=== PATIENT | female | born 1985 | race Caucasian/White ===

== ENCOUNTER 2018-07-17 08:36 | Emergency (ER) | payer OTHER, SELFPAY ==
[2018-07-17 08:39] VITALS: BP 99/60; PULSE 57; RESP 14; TEMP 36.5; O2SAT 99; BMI 21.2
--- NOTE | 2018-07-17 09:16 | ED_ITS ---
HPI - Wound/Laceration General Chief Complaint: Wound/Laceration Stated Complaint: Sliced knuckle Time Seen by Provider: 07/17/18 08:37 Source: patient and family Mode of arrival: ambulatory Limitations: no limitations History of Present Illness HPI narrative: 32-year-old female nonsmoker with benign medical history presents with her and a chief complaint of a laceration over the knuckle of her left index finger. She denies any numbness, tingling or weakness. Her tetanus will need to be updated. She was using sharp, but dirty blade to clean the label off of a glass bottle when it slipped. She denies other injury and is otherwise well and free of complaints Onset (ago): minute(s) Extremity Location: Left: hand Place: home Patient tetanus UTD: No Context: accidental Associated symptoms: pain Treatments prior to arrival: bandage Related Data Previous Rx's Medication Instructions Recorded cephalexin [Keflex] 500 mg PO QID 7 Days #28 cap 07/17/18 Allergies Allergy/AdvReac Type Severity Reaction Status Date / Time No Known Drug Allergies Allergy Verified 07/17/18 08:39 Review of Systems Constitutional Denies chills, Denies fever(s), Denies lethargy and Denies weakness Eyes Denies change in vision, Denies eye discharge, Denies irritation and Denies loss of vision ENT Ears, Nose, Mouth, and Throat: Denies change in voice, Denies neck pain and Denies sore throat Cardiovascular Denies chest pain, Denies irregular heart rhythm, Denies lightheadedness, Denies palpitations, Denies dyspnea, Denies dyspnea on exertion and Denies orthopnea Respiratory Denies cough, Denies dyspnea, Denies dyspnea on exertion and Denies wheezing Gastrointestinal Gastrointestinal: Denies abdominal pain, Denies change in bowel habits, Denies diarrhea, Denies nausea and Denies vomiting Genitourinary Denies hematuria, Denies flank pain, Denies urinary incontinence and Denies urinary urgency Musculoskeletal Denies neck pain Integumentary/Breasts Denies pruritus, Denies erythema, Denies rash and Reports wounds Neurologic Denies confusion, Denies loss of vision and Denies weakness Psychiatric Denies anxiety, Denies confusion, Denies depression, Denies homicidal ideation and Denies suicidal ideation Endocrine Denies palpitations Hematologic/Lymphatic Denies easy bruising Allergic/Immunologic Denies wheezing PFSH Social History Smoking Status: Never smoker Social History Smoking Status: Never smoker Exam Narrative Exam Narrative: GEN: AOx3 and in mild distress EYES: Pupils are equal, round, and reactive to light and accommodation. Extraoccular muscles are intact bilaterally. There is no subconjunctival hemorrhage or exudate. CHEST: Lungs are clear to auscultation bilaterally and free of wheezes, rales, or rhonchi. Heart rate is regular rhythm, there are no murmurs, clicks, rubs, or gallops. There is no chest wall tenderness. ABD: Abdomen is soft and nontender. There is no guarding or rebound. Bowel sounds are normal in all 4 quadrants. There is no mass or organomegaly. EXT: 1 cm laceration over the dorsal side of MCP of L index finger with minimal active bleeding. Partial tendon laceration noted while viewed in a bloodless field, tendon glide is noted but laceration obvious. Full painless ROM of all extremities with no loss of sensation or strength. SKIN: Warm, pink, and dry. No erythema or rash Initial Vital Signs Initial Vital Signs: Vital Signs Temperature 97.7 F 07/17/18 08:39 Pulse Rate 57 L 07/17/18 08:39 Respiratory Rate 14 07/17/18 08:39 Blood Pressure 99/60 07/17/18 08:39 Pulse Oximetry 99 07/17/18 08:39 Procedures Laceration Repair Laceration 1: Site: hand Side (If applicable): left Size (cm): 1 Description: linear Depth: simple, single layer and involves tendon (Full Jefferson noted in bloodless field, however laceration of tendon is noted) Local Anesthetic: lidocaine 1% and with bicarb Pre-repair: wound explored and irrigated extensively Skin layer closed with: nylon Size (cm): 5-0 Number of sutures: 5 Technique: simple, interrupted Course Orders Ordered: Discontinued Medications Diphtheria/Tetanus/Acell Pertussis (Adacel) 0.5 ml IM .ONCE ONE Stop: 07/17/18 09:19 Vital Signs - 8 hr 07/17/18 08:39 Temperature 97.7 F Pulse Rate 57 L Respiratory Rate 14 Blood Pressure 99/60 Pulse Oximetry 99 Discharge Plan Departure Patient Disposition: Home Clinical Impression: Extensor tendon laceration of finger with open wound Qualifiers: Encounter type: initial encounter Qualified Code(s): S56.429A - Laceration of extensor muscle, fascia and tendon of unspecified finger at forearm level, initial encounter Instructions: DI for Laceration Repair, DI for Tendon Repair Activity Restrictions/Additional Instructions: *You have been diagnosed with [ left index finger extensor tendon laceration ] *What to do: *Take medications as directed: your antibiotic has been electronically transmitted to [facility] at your request *Follow up [facility], call for an appointment. Let them know you were seen in the Emergency Department and that we ask that you be seen in follow up *Return to ER if you should have any new, worsening or concerning symptoms Prescriptions: New cephalexin [Keflex] 500 mg capsule 500 mg PO QID 7 Days Qty: 28 RF: 0
[2018-07-17] MEDS: TET,DIPH,PERTUSS(ACELL),VAC/PF 0.5 ML SYRINGE IM (09:19)
[2018-07-17 09:25] VITALS: BP 92/56; PULSE 41; RESP 16; O2SAT 98
== END 2018-07-17 09:26 | disposition home or self-care (01) ==
LOC: ED 09:25
PROVIDERS: Emergency Provider Emergency Medicine; PCP Family Medicine
DX: S56.422A Laceration of extensor muscle, fascia and tendon of left index finger at forearm level, initial encounter (principal); W26.8XXA Contact with other sharp object(s), not elsewhere classified, initial encounter; Z23 Encounter for immunization
CPT/HCPCS: 12001; 90471; 99282; 99283; 90715

== ENCOUNTER 2021-07-11 17:08 | Emergency (ER) | payer OTHER, SELFPAY ==
[2021-07-11 17:12] VITALS: BP 111/56; PULSE 52; RESP 16; TEMP 36.9; O2SAT 98; BMI 21.2
--- NOTE | 2021-07-11 17:22 | PC.NURSE ---
Patient noticed lump today on throat (right side), more visible with swallowing, denies pain with swallowing or palpation.
--- NOTE | 2021-07-11 17:28 | DI.CT.S_ITS ---
PROCEDURE: CT SOFT TISSUE NECK W CON INDICATIONS: Right neck mass TECHNIQUE: After the administration of intravenous contrast, 3.0 mm axial sections acquired from the sella to the aortic arch. Additional oblique axial 3.0 mm sections acquired through the pharynx. 3 mm thick coronal and sagittal reformats were generated. For radiation dose reduction, the following was used: automated exposure control. COMPARISON: None. FINDINGS: Image quality: Excellent. Lymph nodes: No enlarged lymph nodes seen throughout the neck. Vessels: Visualized vasculature appears patent. Neck spaces: The oropharynx, nasopharynx, and pharynx demonstrate no mucosal lesions. The vocal cords, false vocal cords, pyriform sinuses, epiglottis, vallecula, and tongue base all appear normal. Extramucosal spaces appear unremarkable. Glands: 2.5 x 2.1 cm lesion is seen in the right thyroid lobe, which corresponds to the palpable abnormality as indicated by a skin marker. The parotid and submandibular glands appear normal. Miscellaneous: Visualized brain and orbits appear normal. Lung apices appear clear. Superficial soft tissues appear normal. Bones: No suspicious bony lesions. Visualized sinuses and mastoids appear unremarkable. IMPRESSION: Nonspecific 2.5 x 2.1 cm lesion in the right thyroid lobe corresponds to the palpable abnormality. Findings may represent a cystic lesion with proteinaceous or hemorrhagic contents versus a solid thyroid nodule. Recommend thyroid ultrasound for further characterization. Dictated by: Babatunde Worley M.D. on 07/11/2021 at 18:42 Approved by: Babatunde Worley M.D. on 07/11/2021 at 18:47
--- NOTE | 2021-07-11 17:28 | ED.SKABFB ---
HPI - Skin/Abscess/Foreign Bdy <Jered Bedoya DO - Last Filed: 07/12/21 07:10> General Chief complaint: Skin/Abscess/Foreign Body Stated complaint: Lump on throat Time Seen by Provider: 07/11/21 17:21 Source: patient Mode of arrival: Ambulatory History of Present Illness HPI narrative: 35-year-old female who is here for evaluation of a lump on the right side of her throat. She states that she noticed it today when she was getting out of the shower. Does move when she swallows. No problems swallowing. No problems breathing. No trauma. Does not painful. Has never had this in the past. No dental issues. Related Data Allergies Allergy/AdvReac Type Severity Reaction Status Date / Time No Known Drug Allergies Allergy Verified 07/17/18 08:39 Review of Systems <DO Obie Chun Last Filed: 07/12/21 07:10> Constitutional Constitutional: Denies fever(s) ENT Ears, Nose, Mouth, and Throat: Reports system reviewed and no additional complaints, except as documented and Reports as per HPI Respiratory Respiratory: Reports as per HPI and Reports system reviewed and no additional complaints, except as documented Integumentary/Breasts Skin/Breast: Reports system reviewed and no additional complaints, except as documented Hematologic/Lymphatic On Anticoagulants: No Patient History <DO Obie Chun Last Filed: 07/12/21 07:10> Medical History Depression Social History Smoking Status: Never smoker Smoking Status: Never smoker alcohol intake frequency: a few times a week Substance Use Type: does not use Exam <DO Obie Chun Last Filed: 07/12/21 07:10> Initial Vital Signs Initial Vital Signs: Vital Signs Temperature 98.4 F 07/11/21 17:12 Pulse Rate 52 L 07/11/21 17:12 Respiratory Rate 16 07/11/21 17:12 Blood Pressure 111/56 L 07/11/21 17:12 Pulse Oximetry 98 07/11/21 17:12 Const General: cooperative, comfortable and well developed HENLA Head: normal to inspection, normocephalic and atraumatic Ears: TM's normal bilaterally Mouth: oral mucosae normal and moist mucous membranes Teeth and gingiva: dentition normal Throat: uvula midline, no postnasal drainage and no uvular edema Neck Other: Patient with a well defined soft freely movable right sided mass that is approximately 3 cm x 3 cm. It does elevate with swallowing. No left-sided discomfort. No other lymphadenopathy noted. Resp Effort & Inspection: normal respiratory effort Auscultation: clear to auscultation bilaterally Skin General: no rashes or lesions noted Neuro General: patient alert, patient awake, patient oriented x3 and moves all extremities Extrem General: normal to inspection and capillary refill normal Psych Appearance: grossly normal and well kempt <Leslie Espinoza DO - Last Filed: 07/11/21 22:08> Initial Vital Signs Initial Vital Signs: Vital Signs Temperature 98.4 F 07/11/21 17:12 Pulse Rate 52 L 07/11/21 17:12 Respiratory Rate 16 07/11/21 17:12 Blood Pressure 111/56 L 07/11/21 17:12 Pulse Oximetry 98 07/11/21 17:12 Course <Jered Bedoya DO - Last Filed: 07/12/21 07:10> Orders Ordered: ED Orders 07/11/21 17:28 CT soft tissue neck w con Stat 07/11/21 17:34 Basic Metabolic Panel Stat Complete Blood Count AUTO DIFF Stat Test Serum,Qual Stat Thyroid Stimulating Hormone Stat 07/11/21 19:02 US thyroid Stat Vital Signs Vital signs: Vital Signs - 8 hr 07/11/21 17:12 07/11/21 20:22 Temperature 98.4 F Pulse Rate 52 L 43 L Respiratory Rate 16 16 Blood Pressure 111/56 L 92/42 L Pulse Oximetry 98 97 <Leslie Espinoza DO - Last Filed: 07/11/21 22:08> Orders Ordered: ED Orders 07/11/21 17:28 CT soft tissue neck w con Stat 07/11/21 17:34 Basic Metabolic Panel Stat Complete Blood Count AUTO DIFF Stat Test Serum,Qual Stat Thyroid Stimulating Hormone Stat 07/11/21 19:02 US thyroid Stat Vital Signs Vital signs: Vital Signs - 8 hr 07/11/21 17:12 07/11/21 20:22 Temperature 98.4 F Pulse Rate 52 L 43 L Respiratory Rate 16 16 Blood Pressure 111/56 L 92/42 L Pulse Oximetry 98 97 MDM - Skin/Abscess/Foreign Bdy <Jered BedoyaDO - Last Filed: 07/12/21 07:10> Lab Data Result diagrams: 07/11/21 17:34 07/11/21 17:34 Labs: Lab Results 07/11/21 07/11/21 07/11/21 Range/Units 17:34 17:34 17:34 WBC 6.4 (4.5-11.0) X10^3/uL RBC 4.07 (4.0-5.2) X10^6/uL Hgb 12.3 (12.0-16.0) g/dL Hct 35.5 L (36-46) % MCV 87.2 (80-100) fL MCH 30.2 (26-34) PG MCHC 34.6 (30-36) % RDW 13.4 (11.6-14.8) % Plt Count 236 (150-400) X10^3/uL Neut % (Auto) 67.4 (50-75) % Lymph % (Auto) 25.0 (25-40) % Ellsworth % (Auto) 6.2 (3-14) % Eos % (Auto) 0.7 L (2-4) % Baso % (Auto) 0.7 (0-2) % Neut # (Auto) 4300 (6118-4742) /uL Lymph # (Auto) 1600 (4528-9389) /uL Ell[place] # (Auto) 400 (0-900) /uL Eos # (Auto) 0 (0-450) /uL Baso # (Auto) 0 (0-100) /uL Sodium 139 (137-145) mmol/L Potassium 4.3 (3.4-5.1) mmol/L Chloride 105 (98-107) mmol/L Carbon Dioxide 29 (22-32) mmol/L BUN 25 H (7-17) mg/dL Creatinine 0.73 (0.52-1.04) mg/dL Estimated GFR > 60 (>60) mL/min BUN/Creatinine Ratio 34.2 H (6-22) Glucose 98 (70-100) mg/dL Calcium 9.6 (8.4-10.2) mg/dL TSH 1.93 (0.47-4.68) uIU/mL Serum , Qual (Negative) 07/11/21 Range/Units 17:34 WBC (4.5-11.0) X10^3/uL RBC (4.0-5.2) X10^6/uL Hgb (12.0-16.0) g/dL Hct (36-46) % MCV (80-100) fL MCH (26-34) PG MCHC (30-36) % RDW (11.6-14.8) % Plt Count (150-400) X10^3/uL Neut % (Auto) (50-75) % Lymph % (Auto) (25-40) % Ellsworth % (Auto) (3-14) % Eos % (Auto) (2-4) % Baso % (Auto) (0-2) % Neut # (Auto) (0250-5392) /uL Lymph # (Auto) (6102-3371) /uL Ellsworth # (Auto) (0-900) /uL Eos # (Auto) (0-450) /uL Baso # (Auto) (0-100) /uL Sodium (137-145) mmol/L Potassium (3.4-5.1) mmol/L Chloride (98-107) mmol/L Carbon Dioxide (22-32) mmol/L BUN (7-17) mg/dL Creatinine (0.52-1.04) mg/dL Estimated GFR (>60) mL/min BUN/Creatinine Ratio (6-22) Glucose (70-100) mg/dL Calcium (8.4-10.2) mg/dL TSH (0.47-4.68) uIU/mL Serum , Qual Negative (Negative) MDM Narrative Medical decision making narrative: Patient does have a freely movable right sided throat mass that is nontender to palpation. Does elevate with swallowing. This is most likely a thyroglossal duct cyst however thyroid nodule is a concern as well. No respiratory distress a no problems swallowing. Will obtain a CT scan today for further evaluation. Care turned over to Dr. Espinoza to follow-up on the CT scan and disposition. <Leslie Espinoza, - Last Filed: 07/11/21 22:08> Lab Data Labs: Lab Results 07/11/21 07/11/21 07/11/21 Range/Units 17:34 17:34 17:34 WBC 6.4 (4.5-11.0) X10^3/uL RBC 4.07 (4.0-5.2) X10^6/uL Hgb 12.3 (12.0-16.0) g/dL Hct 35.5 L (36-46) % MCV 87.2 (80-100) fL MCH 30.2 (26-34) PG MCHC 34.6 (30-36) % RDW 13.4 (11.6-14.8) % Plt Count 236 (150-400) X10^3/uL Neut % (Auto) 67.4 (50-75) % Lymph % (Auto) 25.0 (25-40) % Ellsworth % (Auto) 6.2 (3-14) % Eos % (Auto) 0.7 L (2-4) % Baso % (Auto) 0.7 (0-2) % Neut # (Auto) 4300 (0595-3379) /uL Lymph # (Auto) 1600 (0533-4963) /uL Ellsworth # (Auto) 400 (0-900) /uL Eos # (Auto) 0 (0-450) /uL Baso # (Auto) 0 (0-100) /uL Sodium 139 (137-145) mmol/L Potassium 4.3 (3.4-5.1) mmol/L Chloride 105 (98-107) mmol/L Carbon Dioxide 29 (22-32) mmol/L BUN 25 H (7-17) mg/dL Creatinine 0.73 (0.52-1.04) mg/dL Estimated GFR > 60 (>60) mL/min BUN/Creatinine Ratio 34.2 H (6-22) Glucose 98 (70-100) mg/dL Calcium 9.6 (8.4-10.2) mg/dL TSH 1.93 (0.47-4.68) uIU/mL Serum , Qual (Negative) 07/11/21 Range/Units 17:34 WBC (4.5-11.0) X10^3/uL RBC (4.0-5.2) X10^6/uL Hgb (12.0-16.0) g/dL Hct (36-46) % MCV (80-100) fL MCH (26-34) PG MCHC (30-36) % RDW (11.6-14.8) % Plt Count (150-400) X10^3/uL Neut % (Auto) (50-75) % Lymph % (Auto) (25-40) % Ellsworth % (Auto) (3-14) % Eos % (Auto) (2-4) % Baso % (Auto) (0-2) % Neut # (Auto) (3206-7506) /uL Lymph # (Auto) (8796-4895) /uL Ellsworth # (Auto) (0-900) /uL Eos # (Auto) (0-450) /uL Baso # (Auto) (0-100) /uL Sodium (137-145) mmol/L Potassium (3.4-5.1) mmol/L Chloride (98-107) mmol/L Carbon Dioxide (22-32) mmol/L BUN (7-17) mg/dL Creatinine (0.52-1.04) mg/dL Estimated GFR (>60) mL/min BUN/Creatinine Ratio (6-22) Glucose (70-100) mg/dL Calcium (8.4-10.2) mg/dL TSH (0.47-4.68) uIU/mL Serum , Qual Negative (Negative) Imaging Data ct soft tissue neck: Radiologist's Impression: CT Scan Report Signed Patient: Henrietta Delarosa MR#: [id number] : 1985 Acct:[id number] Age/Sex: 35 / F Date of Service: 07/11/21 Loc: ED Accession Number: [id number] ?? Procedure: CT soft tissue neck w con Ordering Provider: Jered Bedoya D.O. PROCEDURE:? CT SOFT TISSUE NECK W CON ? INDICATIONS:? Right neck mass ? TECHNIQUE:? After the administration of intravenous contrast, 3.0 mm axial sections acquired from the sella to the aortic arch.? Additional oblique axial 3.0 mm sections acquired through the pharynx.? 3 mm thick coronal and sagittal reformats were generated.? For radiation dose reduction, the following was used:? automated exposure control.? ? COMPARISON:? None. ? FINDINGS:? Image quality:? Excellent.? ? Lymph nodes:? No enlarged lymph nodes seen throughout the neck.? ? Vessels:? Visualized vasculature appears patent.? ? Neck spaces:? The oropharynx, nasopharynx, and pharynx demonstrate no mucosal lesions.? The vocal cords, false vocal cords, pyriform sinuses, epiglottis, vallecula, and tongue base all appear normal.? Extramucosal spaces appear unremarkable.? ? Glands:? 2.5 x 2.1 cm lesion is seen in the right thyroid lobe, which corresponds to the palpable abnormality as indicated by a skin marker.? The parotid and submandibular glands appear normal.? ? Miscellaneous:? Visualized brain and orbits appear normal.? Lung apices appear clear.? Superficial soft tissues appear normal. ? Bones:? No suspicious bony lesions.? Visualized sinuses and mastoids appear unremarkable. ? ? ? IMPRESSION:? Nonspecific 2.5 x 2.1 cm lesion in the right thyroid lobe corresponds to the palpable abnormality.? Findings may represent a cystic lesion with proteinaceous or hemorrhagic contents versus a solid thyroid nodule.? Recommend thyroid ultrasound for further characterization. ? ? ? Dictated by: Babatunde Worley M.D. on 07/11/2021 at 18:42? Us thyroid: Radiologist's Impression: [facility] [id number] Ultrasound Report Signed Patient: Henrietta Delarosa MR#: [id number] : 1985 Acct:[id number] Age/Sex: 35 / F Date of Service: 07/11/21 Loc: Accession Number: [id number] ?? Procedure: US thyroid Ordering Provider: Leslie Espinoza D.O. PROCEDURE:? US THYROID ? INDICATIONS:? NEW LUMP; CYST VS OTHER ? TECHNIQUE:? Real-time scanning was performed of the thyroid gland, with image documentation.? ? COMPARISON:? None. ? FINDINGS:? Right:? Thyroid lobe measures 6.0 x 2.3 x 3.0 cm, and is homogeneous in echotexture.? Left:? Thyroid lobe measures 5.4 x 1.1 x 1.5 cm, and is homogenous in echotexture.? Isthmus:? 0.2 cm thick.? ? Nodule number:? 1 Location:? Right mid Size:? 3.3 x 2.2 x 2.7 cm.? Composition:? Mixed cystic and solid (predominantly cystic) Echogenicity:? Anechoic and isoechoic Shape:? wider than tall. Margins:? Smooth Echogenic foci:? None Total points:? 2 ACR TI-RADS category:? Not suspicious ? IMPRESSION:? Prominently cystic 3.3 cm right thyroid nodule corresponds with the CT abnormality.? No FNA or dedicated imaging follow-up is recommended based on TI-RADS guidelines provided below. ? ACR TI-RADS definitions and recommendations:? TI-RADS 1 (benign): 0 points.? FNA not needed. TI-RADS 2 (not suspicious): 2 points.? FNA not needed. TI-RADS 3 (mildly suspicious): 3 points. * FNA if 2.5 cm or larger, follow up if 1.5 cm or larger (at 1, 3, and 5 years). TI-RADS 4 (moderately suspicious): 4-6 points.? * FNA if 1.5 cm or larger, follow up if 1 cm or larger (at 1, 2, 3, and 5 years).? TI-RADS 5 (highly suspicious): 7 points or more.? * FNA if 1 cm or larger, follow up if 0.5 cm or larger (every year for 5 years).? Dictated by: Babatunde Worley M.D. on 07/11/2021 at 19:50 ? ? MDM Narrative Medical decision making narrative: Patient does have a freely movable right sided throat mass that is nontender to palpation. Does elevate with swallowing. This is most likely a thyroglossal duct cyst however thyroid nodule is a concern as well. No respiratory distress a no problems swallowing. Will obtain a CT scan today for further evaluation. Care turned over to Dr. Espinoza to follow-up on the CT scan and disposition. Patient signed out to me by Dr. Bedoya. I have seen evaluated patient myself. She had palpable cyst on the right. It is not causing any sort of airway compromise there is no erythema or sign of infection. TSH is 1.9. This time she states she had needle biopsy but nothing emergent. She states that is completely possible at that she just happened to notice it today, it may have been there for a while. She overall is comfortable and very pleasant. Discharge Plan Departure Patient Disposition: Home Clinical Impression: Cyst of thyroid Instructions: DI for Needle Biopsy: Thyroid Activity Restrictions/Additional Instructions: *You have been diagnosed with thyroid cyst *What to do: At this time you likely have a cyst on her thyroid. However please follow-up he may require a needle biopsy. TSH 1.93 no evidence of thyroid issues. *Continue to take medications as directed *Follow up with your primary care provider in 2-3 days or call [phone] *Return to ER if you should have difficulty swallowing, redness, fever palpitations or any new, worsening or concerning symptoms Referrals: Diandra Hunt DO [Primary Care Provider] - Visit Report Forms: Patient Portal/API
[2021-07-11 17:46] LABS: Add Manual Diff / Slide Review NO; Basophils Absolute Auto 0 /uL (0-100); Basophils Percent Auto 0.7 % (0-2); Eosinophils Absolute Auto 0 /uL (0-450); Eosinophils Percent Auto 0.7 % (2-4); Hematocrit 35.5 % (36-46); Hemoglobin 12.3 g/dL (12.0-16.0); Lymphocytes Absolute Auto 1600 /uL (1100-4500); Mean Corpuscular HGB Conc 34.6 % (30-36); Mean Corpuscular Hemoglobin 30.2 PG (26-34); Mean Corpuscular Volume 87.2 fL (80-100); Monocytes Absolute Auto 400 /uL (0-900); Monocytes Percent Auto 6.2 % (3-14); Neutrophils Absolute Auto 4300 /uL (1500-7000); Neutrophils Percent Auto 67.4 % (50-75); Platelet Count 236 X10^3/uL (150-400); Red Blood Cell Count 4.07 X10^6/uL (4.0-5.2); Red Cell Distribution Width 13.4 % (11.6-14.8); White Blood Cell Count 6.4 X10^3/uL (4.5-11.0)
[2021-07-11 17:57] LABS: BUN Creatinine Ratio 34.2 (6-22); Blood Urea Nitrogen 25 mg/dL (7-17); Calcium 9.6 mg/dL (8.4-10.2); Carbon Dioxide 29 mmol/L (22-32); Chloride 105 mmol/L (98-107); Estimated Glomerular Filt Rate > 60 mL/min (>60); Glucose 98 mg/dL (70-100); HEMOLYSIS < 15 (0-50); Potassium 4.3 mmol/L (3.4-5.1); Sodium 139 mmol/L (137-145)
[2021-07-11 18:06] LABS: Pregnancy Test Serum,Qual Negative (Negative)
[2021-07-11 18:28] LABS: Thyroid Stimulating Hormone 1.93 uIU/mL (0.47-4.68)
--- NOTE | 2021-07-11 19:02 | DI.US.S_ITS ---
PROCEDURE: US THYROID INDICATIONS: NEW LUMP; CYST VS OTHER TECHNIQUE: Real-time scanning was performed of the thyroid gland, with image documentation. COMPARISON: None. FINDINGS: Right: Thyroid lobe measures 6.0 x 2.3 x 3.0 cm, and is homogeneous in echotexture. Left: Thyroid lobe measures 5.4 x 1.1 x 1.5 cm, and is homogenous in echotexture. Isthmus: 0.2 cm thick. Nodule number: 1 Location: Right mid Size: 3.3 x 2.2 x 2.7 cm. Composition: Mixed cystic and solid (predominantly cystic) Echogenicity: Anechoic and isoechoic Shape: wider than tall. Margins: Smooth Echogenic foci: None Total points: 2 ACR TI-RADS category: Not suspicious IMPRESSION: Prominently cystic 3.3 cm right thyroid nodule corresponds with the CT abnormality. No FNA or dedicated imaging follow-up is recommended based on TI-RADS guidelines provided below. ACR TI-RADS definitions and recommendations: TI-RADS 1 (benign): 0 points. FNA not needed. TI-RADS 2 (not suspicious): 2 points. FNA not needed. TI-RADS 3 (mildly suspicious): 3 points. * FNA if 2.5 cm or larger, follow up if 1.5 cm or larger (at 1, 3, and 5 years). TI-RADS 4 (moderately suspicious): 4-6 points. * FNA if 1.5 cm or larger, follow up if 1 cm or larger (at 1, 2, 3, and 5 years). TI-RADS 5 (highly suspicious): 7 points or more. * FNA if 1 cm or larger, follow up if 0.5 cm or larger (every year for 5 years). Dictated by: Babatunde Worley M.D. on 07/11/2021 at 19:50 Approved by: Babatunde Worley M.D. on 07/11/2021 at 19:55
[2021-07-11 20:22] VITALS: BP 92/42; PULSE 43; RESP 16; O2SAT 97
--- NOTE | 2021-07-11 20:25 | PC.NURSE ---
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 Pt is pink/warm/dry on discharge. Dr Espinoza aware.
== END 2021-07-11 20:24 | disposition home or self-care (01) ==
PROVIDERS: Emergency Medicine; Emergency Provider Emergency Medicine; PCP Family Medicine
DX: E04.1 Nontoxic single thyroid nodule (principal)
CPT/HCPCS: 36415; 70491; 76536; 80048; 84443; 84703; 85025; 99284; Q9967